=== PATIENT | female | born 1985 | race African-American/Black ===

== ENCOUNTER 2020-12-09 19:04 | Emergency (ER) | payer SELFPAY ==
[~2020-12-09] VITALS: Ht 167.6 cm; Wt 100.0 kg
[2020-12-09 19:06] VITALS: BP 121/63
== END 2020-12-09 20:38 | disposition left against medical advice (07) ==
LOC: ER 19:04
DX: E86.0 Dehydration (principal)
CPT/HCPCS: 99283